=== PATIENT | female | born 1970 | race Caucasian/White ===

== ENCOUNTER 2023-09-15 18:03 | Emergency (ER) | payer BC ==
[~2023-09-15] VITALS: Ht 165.1 cm; Wt 68.0 kg
[2023-09-15] MEDS ORDERED: TDAP [DIPH/PERTUSSIS/TET] 0.5 ML VIAL IM ONE ×2 (18:30→18:31)
[2023-09-15 19:43] VITALS: BP 128/72; TEMP 98.2; O2SAT 100
== END 2023-09-15 19:43 | disposition home or self-care (01) ==
LOC: ER 18:07
DX: S61.217A Laceration without foreign body of left little finger without damage to nail, initial encounter (principal); W26.8XXA Contact with other sharp object(s), not elsewhere classified, initial encounter; Y93.89 Activity, other specified; Y92.89 Other specified places as the place of occurrence of the external cause; Y99.8 Other external cause status
CPT/HCPCS: 29130; 73140; 90471; 90715; 99283; A6403